=== PATIENT | male | born 1955 | race Caucasian/White ===

== ENCOUNTER 2018-08-13 22:30 | Emergency (ER) | payer BC ==
[~2018-08-13] VITALS: Ht 187.9 cm; Wt 85.7 kg
[~2018-08-13 22:30] MED LIST: ACULAR 3 ML3 M1 OP; TOBREX OPHTH S2.5 ML OPH
[2018-08-13] MEDS ORDERED: SEPTDS PO (23:07)
[2018-08-13] MEDS ORDERED: ANTIBIOTIC28.4 GM T (23:07)
== END 2018-08-14 00:30 | disposition home or self-care (01) ==
LOC: ED 22:30
DX: S61.213A Laceration without foreign body of left middle finger without damage to nail, initial encounter (principal); Z23 Encounter for immunization; Z88.0 Allergy status to penicillin; W26.0XXA Contact with knife, initial encounter; Y93.89 Activity, other specified; Y92.89 Other specified places as the place of occurrence of the external cause; Y99.8 Other external cause status